=== PATIENT | male | born 1990 | race Caucasian/White ===

== ENCOUNTER → 2017-03-21 | Outpatient (REF) ==
--- NOTE | 2017-03-21 14:45 | REP ---
Right shoulder three views: Comparison is 02/22/2005. There are orthopedic screws in the right glenoid. These were not present previously. There is glenohumeral osteoarthritis. The acromioclavicular joint is unremarkable. There are no calcifications. There is a tiny metallic density inferior to the humeral head medially. This could be a foreign body or postsurgical change. . Signed by Betito Alvarez MD 03/21/2017 02:36 P
== END ==
LOC: M SMT 12:09
PROVIDERS: ATTEND Internal Medicine
DX: Z02.71 Encounter for disability determination (principal); Z96.9 Presence of functional implant, unspecified; M19.011 Primary osteoarthritis, right shoulder

== ENCOUNTER 2017-07-21 19:04 | Emergency (ER) | payer OTHER ==
[2017-07-21] MEDS: NS 1,000 ML IV ×2 (19:33→19:45)
[2017-07-21 19:42] LABS: BASO % 0.5 % (0.0-1.0); EOS # 0.5 10^3/uL (0.0-0.50); EOS % 6.6 % (0.0-3.0); HEMOGLOBIN 14.7 g/dl (14.0-18.0); IMMATURE GRANULOCYTE % 0.3 % (0-3.0); LYMPH # 2.6 10^3/uL (1.5-6.5); LYMPH % 32.7 % (24.0-44.0); MEAN CORPUSCULAR HEMOGLOBIN 29.8 pg (27.0-33.0); MEAN CORPUSCULAR VOLUME 85.2 fl (80.0-96.0); MONO # 0.7 10^3/uL (0.0-0.8); MONO % 9.2 % (0.0-5.0); NEUTROPHILS % 50.7 % (36.0-66.0); PLATELET COUNT, AUTOMATED 338 10^3/uL (150-450); RED BLOOD COUNT 4.93 10^6/uL (4.30-6.10); RED CELL DISTRIBUTION WIDTH 12.3 % (11.5-14.5); WHITE BLOOD COUNT 7.9 10^3/uL (4.0-10.0)
[2017-07-21] MEDS: ONDANSETRON 4MG/2ML VIAL (J2405) IV (19:45)
[2017-07-21] MEDS: MORPHINE 2 MG/ML 1ML SYRINGE (J2270) IV ×2 (19:56→20:17)
[2017-07-21 20:08] LABS: ALBUMIN 4.7 GM/DL (3.2-5.2); ALBUMIN/GLOBULIN RATIO 1.47 (1.00-1.93); ALKALINE PHOSPHATASE 88 U/L (45-117); ALT/SGPT 41 U/L (12-78); ANION GAP 8 MEQ/L (8-16); AST/SGOT 22 U/L (7-37); BILIRUBIN,DIRECT < 0.1 MG/DL (0.0-0.2); BILIRUBIN,TOTAL 0.2 MG/DL (0.2-1.0); BLOOD UREA NITROGEN 12 MG/DL (7-18); CALCIUM LEVEL 9.2 MG/DL (8.5-10.1); CARBON DIOXIDE LEVEL 27 MEQ/L (21-32); CHLORIDE LEVEL 108 MEQ/L (98-107); CREATININE FOR GFR 1.17 MG/DL (0.70-1.30); GLOMERULAR FILTRATION RATE > 60.0 (>60); GLUCOSE, FASTING 102 MG/DL (70-100); LIPASE 162 U/L (73-393); POTASSIUM SERUM 4.3 MEQ/L (3.5-5.1); SODIUM LEVEL 143 MEQ/L (136-145); TOTAL PROTEIN 7.9 GM/DL (6.4-8.2)
[2017-07-21] MEDS: LR 1,000 ML IV (20:45)
[2017-07-21] MEDS: KETOROLAC 30 MG/ML VIAL (J1885) IV ×2 (20:45→21:12)
[2017-07-21] MEDS: CIPROFLOXACIN 400 MG in APPROPRIATE DILUENT 1 EA IV (21:00)
== END 2017-07-21 22:41 | disposition home or self-care (01) ==
LOC: M ED 19:04
DX: N13.30 Unspecified hydronephrosis (principal); N20.0 Calculus of kidney; K58.9 Irritable bowel syndrome, unspecified; Z87.442 Personal history of urinary calculi
CPT/HCPCS: J2405